=== PATIENT | female | born 1995 | race African-American/Black ===

== ENCOUNTER 2021-08-22 21:54 | Emergency (ER) | payer SELFPAY ==
[~2021-08-22] VITALS: Ht 157.5 cm; Wt 57.0 kg
[2021-08-23] MEDS ORDERED: ONDANSETRON HCL 4MG/2ML INJ IV STA (01:22)
[2021-08-23] MEDS ORDERED: KETOROLAC 30MG/ML VIAL IV STA (01:22)
[2021-08-23] MEDS ORDERED: FAMOTIDINE 20MG/2ML VIAL IV STA (01:22)
[2021-08-23] MEDS ORDERED: SODIUM CHLORIDE 0.9% 1,000 ML IV ONE (01:30)
[2021-08-23 03:35] LABS: BASOPHILS % 0.4 % (0.0-2.0); EOSINOPHILS % 0.1 % (0.0-5.0); HEMATOCRIT. 41.8 % (36.0-48.0); HEMOGLOBIN. 14.1 g/dL (12.0-16.0); LYMPHOCYTES % 20.8 % (20.0-50.0); MEAN CORPUSCULAR HEMOGLOBIN 32.1 pg (28.0-32.0); MEAN PLATELET VOLUME 9.1 fl (7.4-10.4); MONOCYTES % 11.8 % (2.0-8.0); NEUTROPHILS % 66.9 % (40.0-76.0); PLATELET 253 x1000/uL (130-400); RED CELL DISTRIBUTION WIDTH 13.4 % (11.6-14.6)
[2021-08-23 03:41] LABS: CHLORIDE 102 mEq/L (98-107)
[2021-08-23 03:45] LABS: HCG SCREEN NEGATIVE
[2021-08-23] MEDS ORDERED: ONDA4TAB5 MT (03:50)
[2021-08-23] MEDS ORDERED: NALO4SPR BOTHNSTRLS (03:50)
[2021-08-23] MEDS ORDERED: POTASSIUM CHLORIDE 20MEQ TABLET SR PO SCH (04:30)
[2021-08-23] MEDS ORDERED: DIPHENHYDRAMINE 50MG CAPSULE PO ONE (04:45)
[2021-08-23 05:05] VITALS: BP 145/87
== END 2021-08-23 05:30 | disposition home or self-care (01) ==
LOC: ER 21:54
DX: F11.13 Opioid abuse with withdrawal (principal); E87.6 Hypokalemia; E86.0 Dehydration; M79.10 Myalgia, unspecified site; R11.2 Nausea with vomiting, unspecified; Z79.899 Other long term (current) drug therapy
CPT/HCPCS: 36415; 80053; 83690; 84703; 85025; 96361; 96374; 96375; 99284; J1885; J2405; J3490; J7030; Q0163